=== PATIENT | male | born 1940 | race Native Hawaiian/Other Pacific Islander ===

== ENCOUNTER 2020-10-24 18:40 | Outpatient (CLI) | payer OTHER ==
[2020-10-24 19:02] LABS: PLATELET COUNT 211 K/uL (142-355)
[2020-10-24 19:20] LABS: POTASSIUM 4.6 mmol/L (3.6-5.2)
== END 2020-10-24 20:51 | disposition home or self-care (01) ==
LOC: LAB 18:40
PROVIDERS: ATTEND Nurse Practitioner Family
DX: Z00.00 Encounter for general adult medical examination without abnormal findings (principal); Z79.899 Other long term (current) drug therapy; R53.83 Other fatigue; R53.81 Other malaise; F32.9 Major depressive disorder, single episode, unspecified; G30.9 Alzheimer's disease, unspecified; G25.81 Restless legs syndrome
CPT/HCPCS: 80053; 80061; 82306; 82607; 83036; 84439; 84443; 85027